=== PATIENT | female | born 1985 | race American Indian/Alaskan Native ===

== ENCOUNTER 2023-09-04 10:34 | Emergency (ER) | payer OTHER ==
[~2023-09-04] VITALS: Ht 157.5 cm; Wt 68.5 kg
[~2023-09-04 10:34] MED LIST: ANTIVERT25 MG PO; MACRODANTIN100 MG PO; PRENATAL CAPSU1 EACH PO
[2023-09-04] MEDS ORDERED: DAILY VALUE1 EACH PO (11:03)
[2023-09-04 12:25] VITALS: BP 131/87
== END 2023-09-04 12:26 | disposition home or self-care (01) ==
LOC: ED 10:34
DX: S80.811A Abrasion, right lower leg, initial encounter (principal); S80.11XA Contusion of right lower leg, initial encounter; I10 Essential (primary) hypertension; W01.0XXA Fall on same level from slipping, tripping and stumbling without subsequent striking against object, initial encounter; Y93.E9 Activity, other interior property and clothing maintenance; Z88.0 Allergy status to penicillin; Z79.899 Other long term (current) drug therapy
CPT/HCPCS: 73590